=== PATIENT | male | born 1995 | race Caucasian/White ===

== ENCOUNTER 2019-03-31 14:35 | Emergency (ER) | payer MEDICAID ==
[~2019-03-31] VITALS: Ht 188 cm; Wt 100.0 kg
[2019-03-31 15:09] VITALS: BP 155/95
[2019-03-31] MEDS ORDERED: AMOX-422 PO (16:11)
== END 2019-03-31 17:09 | disposition home or self-care (01) ==
LOC: ER 14:37
DX: H66.91 Otitis media, unspecified, right ear (principal); Z79.899 Other long term (current) drug therapy
CPT/HCPCS: 99283